=== PATIENT | female | born 1970 | race Caucasian/White ===

== ENCOUNTER 2018-10-07 14:45 | Inpatient (IN) ==
[2018-10-07] MEDS ORDERED: NS 1,000 ML IV PRN (15:05)
[2018-10-07 15:29] LABS: BASO# 0.03 X1000 (0.0-0.2); BASO% 0.4 % (0.0-0.8); EOS# 0.27 X1000 (0.0-0.7); EOS% 3.7 % (0.0-10.0); HEMATOCRIT 39.1 % (37.0-47.0); HEMOGLOBIN 13.3 g/dL (12.0-16.0); IMM GRAN# 0.01 X1000 (0.0-0.04); IMM GRAN% 0.1 % (0.0-0.5); LYMPH% 42.5 % (20.5-51.1); MCH 33.3 PG (27-31); MCV 97.8 FL (81-99); MONO# 0.57 X1000 (0.11-0.59); MONO% 7.8 % (1.7-9.3); MPV 9.1 FL (7.4-10.4); NEUT# 3.32 X1000 (1.4-6.5); NEUT% 45.5 % (42.2-75.2); PLT 334 X1000 (130-400); RDW 14.2 % (11.5-14.5)
--- NOTE | 2018-10-07 15:43 | Diag Imaging Result Doc PS360 ---
EXAM: CT HEAD W/O CONTRAST - 10/07/2018 HISTORY: CVA TECHNIQUE: CT head without contrast COMPARISON: None. FINDINGS: There is no evidence of intracranial hemorrhage, mass effect, midline shift, or hydrocephalus. There is no evidence of infarct, although acute infarcts may not be immediately visible. There is no evidence of skull fracture. Visualized portions of paranasal sinuses and mastoid air cells appear clear. IMPRESSION: No visible acute intracranial abnormality. No hemorrhage or mass effect. This exam was performed using automated exposure control, adjustment of mA or kV according to patient size, and/or use of iterative reconstruction technique. Electronically signed by Ranulfo Carrillo 10/07/2018 3:41 PM
--- NOTE | 2018-10-07 15:45 | Diag Imaging Result Doc PS360 ---
EXAM: CHEST-PORTABLE - 10/07/2018 HISTORY: SOB TECHNIQUE: Portable chest COMPARISON: 12/24/2016 FINDINGS: Heart size is normal. There are apparent COPD changes with mildly hyperexpanded lungs. There is apparent artifact from nipple shadow at the right base. There is no consolidation, vascular congestion, substantial pleural effusion, or pneumothorax identified. There is mild pleural thickening at the bilateral apices and lateral right base which appears stable. IMPRESSION: Apparent COPD changes with mildly hyperexpanded lungs. No other evidence of acute disease. Electronically signed by Ranulfo Carrillo 10/07/2018 3:43 PM
[2018-10-07 15:52] LABS: AGAP 10; ALBUMIN 4.1 g/dL (3.5-5.0); ALKALINE PHOSPHATASE 103 U/L (32-104); BUN 8 mg/dL (8-22); CALCIUM 9.1 mg/dL (8.8-10.2); CHLORIDE 100 mmol/L (98-107); COSMO 275; CREATININE 0.6 mg/dL (0.5-0.9); ESTIMATED GFR > 60; GLUCOSE 88 mg/dL (70-104); GOT 24 U/L (10-30); GPT 20 U/L (10-36); POTASSIUM 3.6 mmol/L (3.5-5.1); SODIUM 139 mmol/L (136-145); TCO2 29 mmol/L (25-35); TOTAL PROTEIN 6.5 g/dL (6.3-8.3)
[2018-10-07] MEDS ORDERED: ASPIRIN PO ONE (15:52)
[2018-10-07 15:54] LABS: INR 0.95; PROTIME 13.2 Seconds (11.0-16.0)
[2018-10-07 15:55] LABS: PTT 34.4 Seconds (22.3-41.8)
[2018-10-07] MEDS ORDERED: TORADOL IV ONE (16:08)
[2018-10-07] MEDS ORDERED: MORPHINE ONE (16:15)
[2018-10-07] MEDS ORDERED: MORPHINE IV ONE (16:17)
--- NOTE | 2018-10-07 16:18 | EKG Report ---
Test Performed on : 10/07/2018 3:39:05 PM Test Reason : CVA Blood Pressure : / mmHG Vent. Rate : 076 BPM Atrial Rate : 076 BPM P-R Int : 134 ms QRS Dur : 086 ms QT Int : 396 ms P-R-T Axes : 083 084 073 degrees QTc Int : 445 ms Normal sinus rhythm. Possible Left atrial enlargement Low voltage QRS Borderline ECG No previous ECGs available Unconfirmed Result
--- NOTE | 2018-10-07 16:21 | PROVIDER DOCUMENTATION ---
This chart was entered by Ava Meng Scribe, acting as scribe for Walter Bansal MD. HPI-Neurological Disorder - General Chief Complaint: General Adult Stated Complaint: FACE NUMB Time Seen by Provider: 10/07/18 14:55 Source: patient, family () Allergies/Adverse Reactions: Patient Allergies Allergy/AdvReac Type Severity Reaction Status Date / Time Sulfa (Sulfonamide Allergy Unknown Unknown Verified 04/13/14 18:32 Antibiotics) acetaminophen AdvReac Unknown Verified 10/07/18 15:05 NSAIDS (Non-Steroidal AdvReac Unknown Verified 10/07/18 15:05 Anti-Inflamma phenazopyridine AdvReac Unknown Verified 10/07/18 15:05 [From Pyridium] Home Medications: Home Medication List Medication Instructions Recorded Confirmed Last Taken Type Alprazolam [Xanax] 0.25 mg PO TID 04/13/14 04/13/14 04/13/14 History Cyclobenzaprine [Flexeril] 10 mg PO TID PRN #10 tablet 04/13/14 Unknown Rx Hydrocodone/APAP 5 mg/325 mg 1 each PO Q6H PRN PRN #12 tablet 04/13/14 Unknown Rx [Ferdinand-5] Ibuprofen [Motrin] 600 mg PO Q8-12H PRN PRN #12 tablet 04/13/14 Unknown Rx Venlafaxine [Effexor] 75 mg PO TID 04/13/14 04/13/14 04/13/14 History - History of Present Illness-Neuro Nature of Presenting Problem: 48 yowf presents to the ed via pov with at bedside. pt sts that she called him 1 week prior with same sx and he advised to go to the hospital but pt did not. pt sts came back home yesterday via a plane and when met her she was brought off the plane in a wheelchair due to weakness of left side. pt went home and today noticed facial numbness. pt is chronic pain pt and takes "Xanax for tremors" pt ambulated to room 9 with holding her arm for support. once in the room and pt was lying in the bed pt could not lift her LUE or LLE. pt has mild slurring of speech and facial droop on left side. pt sts numbness and tingling noted to whole left side of body and c/o CEE Headache Location: reports: frontal Severity: reports: severe Onset/Duration: reports: 1 week ago (per ) Timing: reports: still present, getting worse Context: reports: impaired speech, paresthesia, facial droop Any recent trauma/injury?: reports: none Character of Deficits: reports: altered sensation, impaired speech, decreased ability to walk New weakness or altered sensation location:: reports: LUE, LLE, left facial Cognitive Baseline: alert, oriented x3 Gait Baseline: uses a cane Associated Symptoms: reports: headache, decreased ability to walk or stand, numbness in legs/feet (left side only), paresthesia (left side of body), slurred speech, tingling in legs/feet (left side only), weakness. denies: nausea, vomiting Similar Symptoms Previously?: No Recently seen or treated by another doctor?: No Review of Systems - Adult - REVIEW OF SYSTEMS - ADULT ROS:: ROS per family (per and pt) Constitutional: reports: no symptoms reported Eyes: reports: no symptoms reported Ears, Nose, Mouth & Throat: reports: no symptoms reported Cardiovascular: denies: chest pain, palpitations, syncope Respiratory: denies: cough, shortness of breath, wheezing Gastrointestinal: denies: diarrhea, nausea, vomiting Genitourinary: reports: no symptoms reported Musculoskeletal: reports: see HPI, muscle weakness (LUE/LLE). denies: back pain, neck pain Integumentary: reports: no symptoms reported Neurological: reports: see HPI, headache/migraines, loss of balance, numbness, paresthesia, slurred speech, tremors Psychiatric: reports: see HPI, anxiety Endocrine: reports: no symptoms reported Hematologic/Lymphatic: reports: no symptoms reported Allergic/Immunologic: reports: no symptoms reported All Other Systems: Reviewed and Negative Past History - Adult - PAST MEDICAL HISTORY-ADULT Review of Records: reports: Old Records Reviewed, Nursing Assessment Review, Medications Reviewed, Social history reviewed & non-contributory. Major Childhood Illnesses: reports: denies history Cardiovascular: reports: denies history Respiratory: reports: denies history Gastrointestinal: reports: denies history Obstetrical/Gynecological: reports: denies history Genitourinary: reports: denies history Musculoskeletal: reports: chronic pain, intervertebral disc disease, other (c- spine sx) Hand Dominance: Right Handed Neurological: reports: denies history Psychiatric: reports: anxiety, depression Endocrine/Immune: reports: Diabetes Other Conditions: reports: denies history - PRIOR SURGERIES/PROCEDURES Surgical/Procedure History: reports: appendectomy, hysterectomy, back/neck - IMMUNIZATION STATUS Childhood Immunizations: See Nurse Assessment Flu Vaccine: See Nurse Assessment - FAMILY HISTORY Family History: reviewed, not pertinent - SOCIAL HISTORY Smoking: cigarettes, greater than 1 pack/day Provider spent 3-5 mins advising pt. on dangers of tobacco.: Discussed manners to quit use, and f/u contacts for add'l counseling. Substance Use: marijuana Living Situation: family Physical Exam- Neurological - Physical Exam-Neuro Initial Vital Signs Reviewed: Yes General Appearance: alert, mild distress, thin Eye Exam: bilateral eye: PERRL HENMT: moist mucous membranes Head Injury: no evidence of injury Neck: non-tender, full range of motion, normal inspection Respiratory: chest non-tender, lungs clear, normal breath sounds Cardiovascular: normal peripheral pulses, regular rate, rhythm Abdominal Exam: normal bowel sounds, non tender, soft Lymphatic: no adenopathy Extremity: normal inspection, normal capillary refill, pelvis stable, other (LUE and LLE has no strength on exam). 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 II-XII, abnormal gait, facial droop, motor weakness Integumentary: normal color, normal turgor, warm/dry Psych/Mental Status: oriented x 3, tearful - Glascow Coma Scale Best Eye Response: (4) open spontaneously Best Verbal Response: (5) oriented Best Motor Response: (6) obeys commands Total Glascow Score: 15 Progress - PLAN OF CARE/RESULTS Progress/Plan/Lab Results: Vital Signs - 8 hr 10/07/18 14:50 Temperature 98 F Pulse Rate 74 Respiratory Rate 18 Blood Pressure 138/94 O2 Sat by Pulse Oximetry 99 Laboratory Results - last 24 hr 10/07/18 10/07/18 10/07/18 15:20 15:20 15:20 WBC 7.30 RBC 4.00 L Hgb 13.3 Hct 39.1 MCV 97.8 MCH 33.3 H MCHC 34.0 RDW Std Deviation 14.2 Plt Count 334 MPV 9.1 Immature Gran % (Auto) 0.1 Neut % (Auto) 45.5 Lymph % (Auto) 42.5 [place] % (Auto) 7.8 Eos % (Auto) 3.7 Baso % (Auto) 0.4 Immature Gran # (Auto) 0.01 Neut # (Auto) 3.32 Lymph # (Auto) 3.10 [place] # (Auto) 0.57 Eos # (Auto) 0.27 Baso # (Auto) 0.03 PT INR PTT (Actin FS) Sodium 139 Potassium 3.6 Chloride 100 Carbon Dioxide 29 Anion Gap 10 BUN 8 Creatinine 0.6 Estimated GFR/1.73 m2 > 60 BUN/Creatinine Ratio 13 Glucose 88 Calculated Osmolality 275 Calcium 9.1 Total Bilirubin 0.30 AST 24 ALT 20 Alkaline Phosphatase 103 Troponin T < 0.010 Total Protein 6.5 Albumin 4.1 Globulin 2.0 Albumin/Globulin Ratio 2.0 10/07/18 15:20 WBC RBC Hgb Hct MCV MCH MCHC RDW Std Deviation Plt Count MPV Immature Gran % (Auto) Neut % (Auto) Lymph % (Auto) [place] % (Auto) Eos % (Auto) Baso % (Auto) Immature Gran # (Auto) Neut # (Auto) Lymph # (Auto) [place] # (Auto) Eos # (Auto) Baso # (Auto) PT 13.2 INR 0.95 PTT (Actin FS) 34.4 Sodium Potassium Chloride Carbon Dioxide Anion Gap BUN Creatinine Estimated GFR/1.73 m2 BUN/Creatinine Ratio Glucose Calculated Osmolality Calcium Total Bilirubin AST ALT Alkaline Phosphatase Troponin T Total Protein Albumin Globulin Albumin/Globulin Ratio Orders Category Date Time Status Cardiac Monitoring DIRECTED Care 10/07/18 15:05 Active Finger Stick Blood Sugar (ED) DIRECTED Care 10/07/18 15:05 Active Misc. NRSG Communication Order DIRECTED Care 10/07/18 15:05 Active Saline Loc NOW Care 10/07/18 15:05 Active CHEST-PORTABLE [RAD] Stat Exams 10/07/18 15:[address] HEAD W/O CONTRAST [CT] Stat Exams 10/07/18 15:05 Completed CBC WITH ELECTRONIC DIFF [HEME] Stat Lab 10/07/18 15:20 Completed COMPREHENSIVE METABOLIC PANEL [CHEM] Stat Lab 10/07/18 15:20 Completed PROTIME WITH INR [COAG] Stat Lab 10/07/18 15:20 Completed PTT [COAG] Stat Lab 10/07/18 15:20 Completed TROPONIN T Stat Lab 10/07/18 15:[address] W/POSS RFLX CULT [URINALYSIS] Stat Lab 10/07/18 15:05 Uncollected URINE DRUG SCREEN PL Stat Lab 10/07/18 15:05 Uncollected 0.9% Sodium Chloride Inj [Ns] 1,000 ml Med 10/07/18 15:05 Active IV 150 mls/hr Aspirin Med 10/07/18 15:52 Discontinued 325 mg PO NOW ONE Ketorolac [Toradol] Med 10/07/18 16:08 Discontinued 30 mg IV NOW ONE Morphine Med 10/07/18 16:17 Discontinued 3 mg IV NOW ONE EKG [EKG] Stat Ther 10/07/18 15:05 Draft pt is out of TPA window due to onset 1 week prior and sx have been intermittent for 1 week Result Diagrams: 10/07/18 15:20 10/07/18 15:20 - REASSESSMENT Reassessment #1 Time Reassessed: 16:10 Status: unchanged Reassessment Comment: dr bansal at bedside. not tpa candidate symptom onset >4.5 hrs - EKG 1 Time of EKG reading by physician:: 15:39 EKG Read and Signed by:: Walter Bansal EKG Interpretation (*Must complete 3 of following elements*): Normal (liam rderline) Rate: 76 Rhythm: nsr [place]: normal QRS: other (possible left atrial enlargement/low voltage qrs) [place] Interval: normal ST Wave: normal - CONSULTS/PCP/HOSPITALIST Notification #1 *Consult/PCP/Hospitalist*: hospitalist dr chirinos Time Discussed: 16:18 (venus in er and saw pt at bedside) Reason/Comments: cva Consult Disposition: Will see in ED, Admit Departure - Departure Date of Disposition Decision: 10/07/18 Time of Disposition Decision: 16:11 DIAGNOSIS: Tobacco use disorder CVA (cerebral vascular accident) Qualifiers: CVA mechanism: unspecified Qualified Code(s): I63.9 - Cerebral infarction, unspecified Disposition: ADMITTED INPATIENT 09 Certified Medical Emergency: Emergent Condition: Stable Referrals and Follow-Ups: Walter Briceno MD [Primary Care Provider] - - Critical Care Note This patient required my direct & personal management of CC.: Yes Total Time (mins): 39 Critical Care Statement: This patient required my direct personal management to treat or rule out processes, the absence of which, could potentiallly result in sudden, clinically significant life or limb threatening deterioration. Attestation - Physician/ MIRTHA Attestation Patient care was provided by Advanced Practice Provider:: No The physician spent face to face time with patient:: Yes Advanced Practice Provider documentation review:: Supervising physician onsite and consulted in the evaluation and care of this patient. The physician did have a face to face encounter with the patient. - NIH Stroke Scale NIH Type: Initial Evaluation Level of Consciousness: 0-Alert LOC Questions (ask month and age): 0-Answers Both Correctly LOC Commands (ask to open & close eyes;make a fist, let go): 0-Obeys Both Correctly Best Gaze (horizontal eye movement): 0-Normal Visual (use finger movement, counting or visual threat): 0-No Visual Loss Facial Palsy (show teeth or raise eyebrows & close eyes tght: 2-Partial Paralysis Motor Function-left arm: 2-Some Effort Against [place] Motor Function-right arm: 0-Normal Motor Function-left le-Some Effort Against [place] Motor Function-right le-Normal Limb Ataxia(yuceam-ocpa-nwxcyb, or heel to goldman): 0-No Ataxia Sensory(pin prick to face,arms,trunk,legs-compare side/side): 1-Mild to Moderate Decrease in Sensation Best Language(name item/read sentence.Ex-Down to Earth): 0-No Aphasia Dysarthria(Pt read words or say words Ex.Mama,Tip-Top,Thanks: 0-Normal Art iculation Extinction and Inattention: 0-Normal NIH Total Score: 7 This chart was documented by the indicated scribe, (Ava Meng Scribe) and accurately reflects the services I performed and decisions made by me, Walter Bansal MD, as attested by the provider's signature.
[2018-10-07 18:36] LABS: BILIRUBIN URINE NEGATIVE (NEGATIVE); BLOOD URINE NEGATIVE (NEGATIVE); GLUCOSE URINE NEGATIVE (NEGATIVE); KETONE URINE TRACE mg/dL (NEGATIVE); NITRITE URINE NEGATIVE (NEGATIVE); PROTEIN URINE NEGATIVE (NEGATIVE); UROBILINOGEN URINE NORMAL
[2018-10-07 18:37] LABS: CLARITY CLEAR (CLEAR); COLOR YELLOW; LEUKOCYTES URINE NEGATIVE (NEGATIVE)
[2018-10-07 18:43] LABS: URINE BACTERIA NEGATIVE /HFP; URINE CAST NONE SEEN /LPF; URINE CRYSTAL NONE SEEN /HPF; URINE EPITHELIAL CELLS <10 /HPF (<10); URINE RBC <10 /HPF (<10); URINE SOURCE CATH; URINE WBC <10 /HPF (<10); URINE YEAST NONE SEEN /HPF
[2018-10-07 18:46] LABS: UR OPIATES QUAL PRESUMPTIVE POSITIVE (NONE DETECT)
[2018-10-07 18:47] LABS: UR AMPHETAMINES QUAL NONE DETECTED (NONE DETECT); UR BARBITUATES QUAL NONE DETECTED (NONE DETECT); UR BENZODIAZEPIN QUAL PRESUMPTIVE POSITIVE (NONE DETECT); UR CANNABINOIDS QUAL NONE DETECTED (NONE DETECT); UR COCAINE QUAL NONE DETECTED (NONE DETECT); UR METHADONE QUAL NONE DETECTED (NONE DETECT); UR METHAMPHETAMINE QUAL NONE DETECTED (NONE DETECT); UR OXYCODONE QUAL NONE DETECTED (NONE DETECT); UR PCP QUAL NONE DETECTED (NONE DETECT); UR PROPOXYPHENE QUAL NONE DETECTED (NONE DETECT); UR TCA QUAL NONE DETECTED (NONE DETECT)
--- NOTE | 2018-10-07 20:43 | HISTORY AND PHYSICAL ---
ADDENDUM: Patient seen and examined by myself. Full note dictated and discussed with nurse practitioner. Patient has a long history of smoking. Notes that until recently she was smoking a pack and half a day. She has decreased to 4 or 5 cigarettes a day. Her history is very difficult to follow as it appears though her neurologic weakness has been increasing and decreasing over the past several days to weeks to possibly a month. She apparently had similar symptoms a week ago but did not go to the hospital or to her primary care to be checked out. She was on vacation and notes that symptoms started with facial weakness and then shoulder weakness. It does not appear as though all the symptoms started at the same time, which certainly would be somewhat unusual for a stroke. Regardless, we will admit her to the hospital, place her on telemetry, IV fluids, oxygen, check her cholesterol, carotid echo, MRI and we will follow. cc: Ortiz Haas MD
--- NOTE | 2018-10-07 20:46 | HISTORY AND PHYSICAL ---
PRIMARY CARE PROVIDER: Dr. Walter Briceno. CHIEF COMPLAINT: Complete left-sided numbness and tingling. HISTORY OF PRESENT ILLNESS: Ms. 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 Last week, it happened again while she was on vacation in [place] and it was more to the left upper extremity, and then she started having numbness and tingling, as well as some pain. She states yesterday, she got on a plane and it continued to exacerbate all the way down the left side of her body, so much so that she was unable to walk. They had to wheel her out in a wheelchair. She woke up this morning, she had lost complete sensation in her fingertips and the bottom of her feet. She stuck her left foot with a pin and did not have any sensation. However, she states now she feels like some of the sensation is coming back. 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 She is unable to move her lower extremity at all unless she picks it up herself. When she pushes with her bilateral lower extremities, she has 5/5 on the right, about 1/5 on the left, intermittent sensation going up her left side of her body. Workup in the ED, laboratory data was essentially unremarkable. Her head CT scan was normal. We will put her in and rule her out for CVA. If her MRI does not show anything acute, we may have to get Neurology involved. She does have an appointment with a neurologist sometime in the near future to try to rule in or rule her out for Parkinson's. PAST MEDICAL HISTORY: 1. Recent left ear infection, on amoxicillin. 2. COPD, emphysema. 3. Tremors, on Xanax. 4. Scoliosis, walks with a cane. 5. 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 6. Lupus. 7. Crohn's disease with scarring. PAST SURGICAL HISTORY: 1. Five kidney stone removals. 2. Two sections. 3. Tubal ligation. 4. Complete hysterectomy. 5. Neck surgery. 6. Cholecystectomy. 7. Appendectomy. FAMILY HISTORY: Dad had a pituitary cancer, a rare bone cancer from [place], was born with 1 kidney, diabetes, alcoholism. Mother with cardiomyopathy. Her son was born with hypertrophic cardiomyopathy. SOCIAL HISTORY: She is , 6 children. She was a 1-1/2 pack per day smoker since the age of 13. No alcohol. Occasional marijuana. No illicit drug use. She has recently cut back, has had a total of 5 cigarettes over the course of a month. REVIEW OF SYSTEMS: A 12-point review of systems completed and negative, except for those mentioned in the HPI. No headache. No fever. No chills. No chest pain. No nausea. No vomiting. No diarrhea. No dysuria. PHYSICAL EXAMINATION: VITAL SIGNS: Temperature is 98.4 degrees, heart rate 74, respirations 18, blood pressure 138/94, O2 is 99% on room air. GENERAL: Ms. Gaxiola is a pleasant, 48-year-old, female, who is lying on the bed in no acute distress, somewhat anxious. HEENT: Atraumatic, normocephalic. PERRL. NECK: Supple. Trachea midline. CARDIOVASCULAR: S1, S2 appreciated. No murmurs, gallops, rubs noted. RESPIRATORY: Lung sounds clear bilaterally. GASTROINTESTINAL: Soft, nontender, nondistended. Positive bowel sounds x4 quadrants. EXTREMITIES: Lower extremities are negative for edema. No signs of clubbing or cyanosis. NEUROLOGIC: The patient is awake, alert, and oriented. Follows commands. Moves all extremities. On shoulder shrug, she is weaker on the left than the right. Her smile is symmetrical. Her tongue is midline. Upper extremity weakness, right 5/5, left 3/5. Positive for pronator drift. However, her left arm was extremely shaky. Left, she could not lift her left leg off the bed without assisting it herself. Her push on the right was 5/5, left 1/5. She complained of numbness and tingling all over the left side of her body that continues to wax and wane. She does feel like she is regaining feeling back in her fingertips. However, now she is complaining of some right-sided neck pain. DIAGNOSTIC DATA: Head CT did not show anything acute. Chest x-ray showed COPD changes. LABORATORY DATA: White count 7, hemoglobin and hematocrit 13 and 39, platelet count 334,000. Sodium 139, potassium 3.6, BUN 8, creatinine 0.6, blood glucose is 88. Troponin was less than 0.010. ASSESSMENT AND PLAN: 1. Cerebrovascular accident rule out. Her head CT was negative. We will continue with a brain MRI/MRA in the morning, as well as echocardiogram and carotid Doppler's. Currently, pending urine drug screen as well as urinalysis. We will continue with full-dose aspirin, IV fluids, neurologic checks. Consult Physical Therapy, Cook'S Assistant. 2. Known scoliosis. Patient walks with a cane. 3. Lupus. 4. Crohn's disease. 5. Recent left ear infection, on amoxicillin. We will continue this when they have been verified. 6. Chronic obstructive pulmonary disease, emphysema, without exacerbation. We will continue her on Spiriva. 7. Tremors. Patient takes Xanax at home. 8. Further recommendations to follow physician evaluation, laboratory and diagnostic data. If diagnostic data does not rule her in for CVA, we will have to get Neurology involved after the testing. Dictated by JENA Briggs for Ortiz Haas MD cc: MD Walter Jones MD
[2018-10-08] MEDS: LIPITOR PO SCH ×2 (04:31→20:48)
[2018-10-08 05:52] LABS: HEMATOCRIT 34.5 % (37.0-47.0); HEMOGLOBIN 11.4 g/dL (12.0-16.0); MCH 32.9 PG (27-31); MCV 99.4 FL (81-99); MPV 9.6 FL (7.4-10.4); RBC 3.47 XMIL (4.2-5.4); RDW 14.2 % (11.5-14.5); WBC 7.53 X1000 (4.8-10.8)
[2018-10-08 06:35] LABS: AGAP 9; BUN 10 mg/dL (8-22); CALCIUM 8.3 mg/dL (8.8-10.2); CHLORIDE 110 mmol/L (98-107); COSMO 285; CREATININE 0.5 mg/dL (0.5-0.9); ESTIMATED GFR > 60; GLUCOSE 74 mg/dL (70-104); POTASSIUM 3.7 mmol/L (3.5-5.1); SODIUM 144 mmol/L (136-145); TCO2 25 mmol/L (25-35)
[2018-10-08] MEDS ORDERED: VENTOLIN HFA INH PRN (07:41)
--- NOTE | 2018-10-08 08:20 | Extremity Venous Study ---
EXAM: Carotid Ultrasound HISTORY: ?CVA TECHNIQUE: Grayscale, duplex, and color Doppler evaluation was performed of the carotid arteries bilaterally. COMPARISON: None. FINDINGS: There is mild bilateral calcific atherosclerotic plaque. There are no velocity elevations to suggest hemodynamically significant carotid artery stenosis. ICA/CCA ratios are within normal limits. Bilateral vertebral arterial flow is antegrade. IMPRESSION: No evidence for hemodynamically significant carotid artery stenosis. Estimated stenosis is less than 50% bilaterally. Electronically signed by Nakia Moore 10/08/2018 8:18 AM
[2018-10-08] MEDS: XANAX PO SCH ×3 (08:47→17:15)
[2018-10-08] MEDS: ASPIRIN PO SCH (08:47)
[2018-10-08] MEDS ORDERED: NS 1,000 ML IV PRN (09:09)
[2018-10-08] MEDS: SPIRIVA INH SCH (10:11)
--- NOTE | 2018-10-08 13:47 | ECHO REPORT ---
ORDER DATE: 10/07/2018 INTERPRETING PHYSICIAN: Dr. Azeem Smith ECHOCARDIOGRAPHIC MEASUREMENTS: 1. Interventricular septum: 0.7 cm. 2. Posterior wall: 0.7 cm. 3. Diastolic diameter: 4.1 cm. 4. Left atrium: 2.7 cm. 5. Aortic root: 2.8 cm. SUMMARY OF THE 2-DIMENSIONAL IMAGIN. Aortic valve leaflets are trileaflet. 2. Pulmonic valve was normal. 3. Tricuspid valve was normal. 4. Mitral valve was normal. 5. Normal left ventricular cavity size. Estimated ejection fraction of 65 to 70 percent. 6. There is mild mitral regurgitation. 7. Peak velocity across the aortic valve less than 2 m/sec. There is no aortic stenosis or regurgitation. 8. There is mild tricuspid regurgitation. Peak velocity across the tricuspid valve was 2.5 m/sec. 9. Pulmonary artery systolic pressure of 35 mmHg. 10. There is no pericardial effusion or obvious intracardiac mass or thrombus seen. 11. Saline contrast study was done which was negative for patent foramen ovale. cc: Azeem Smith MD
--- NOTE | 2018-10-08 14:55 | Diag Imaging Result Doc PS360 ---
EXAM: MRA BRAIN W/O CONTRAST HISTORY: R/O CVA TECHNIQUE: 3-D [id number] images of the [place]. COMPARISON: None. FINDINGS: Basilar artery, posterior cerebral arteries, distal internal carotid arteries, middle cerebral arteries, and anterior cerebral arteries are patent. No stenosis or occlusion. No aneurysm. IMPRESSION: Normal MRI of the [place]. Electronically signed by Nakia Moore 10/08/2018 2:52 PM
--- NOTE | 2018-10-08 14:58 | Diag Imaging Result Doc PS360 ---
EXAM: MRI BRAIN W/O CONTRAST HISTORY: R/O CVA TECHNIQUE: Multisequence, multiplanar images of the brain were obtained without contrast as per standard protocol. COMPARISON: None. FINDINGS: There are no extra-axial collections. Diffusion images show no evidence for acute infarct. There is no evidence for hemorrhage. There is no hydrocephalus. No midline shift or mass effect. There is no abnormal signal within the brainstem, cerebellum, or cerebral hemispheres. There is mild sphenoid mucosal disease. IMPRESSION: Sphenoid sinus disease. Otherwise normal noncontrasted MRI of the brain. Electronically signed by Nakia Moore 10/08/2018 2:56 PM
--- NOTE | 2018-10-08 17:18 | PROGRESS NOTE ---
DATE: 10/08/2018 SUBJECTIVE: The patient notes that she is feeling a lot better today. She is noted to be moving her left arm without any difficulty, although when asked, she notes she still has weakness in her left shoulder. Does still appear to have some weakness of her left leg, but still much improved. PHYSICAL EXAMINATION: Vital Signs: Temperature 97.6, Pulse 59, respiratory 18, BP 96/57. General: Patient is awake, alert, currently in no distress. HEENT: Normocephalic. Neck: Supple. Cardiovascular: Regular rate. Chest: Clear. Abdomen: Soft. Extremities: Moves all extremities. Neurologic: No focal changes. Still has left lower extremity weakness. Could not appreciate any left upper extremity weakness. ASSESSMENT: 1. Acute neurologic event. I certainly suspect this could have been a stroke, but unusual given the way that her symptoms started slowly and progressed. Regardless, they are improving. We will continue physical therapy. MRI and MRA are currently pending. 2. Crohn's. 3. Lupus. 4. Chronic obstructive pulmonary disease. PLAN: We will continue patient in the hospital, continue physical therapy, and continue to follow. cc: Ortiz Haas MD
[2018-10-09] MEDS: SPIRIVA INH SCH (07:53)
[2018-10-09] MEDS: ASPIRIN PO SCH (09:21)
[2018-10-09] MEDS: XANAX PO SCH ×3 (09:21→21:36)
--- NOTE | 2018-10-09 17:35 | PROGRESS NOTE ---
DATE: 10/09/2018 SUBJECTIVE: Patient notes that her left upper extremity weakness appears to have resolved. She is still having some left lower extremity weakness. She is having some pain in her left shoulder. Denies any fevers or chills. Denies any headaches, blurred vision or focalized weakness or numbness on her right side. PHYSICAL: Temperature 97.6, pulse 59, respiratory 18, BP 96/57.General: Patient is awake, alert, she is in no distress. She is noted to have full motion of her left upper extremity. She has good mobility on her left but does seem to be a little weak. HEENT: Normocephalic. Neck: Supple. Cardiovascular: Regular rate. Chest: Clear. Abdomen: Soft. Skin: Warm, dry, no rashes. ASSESSMENT: 1. Left-sided weakness. CT, MRI and MRA all are negative. Carotid is still pending. 2. Known scoliosis. 3. Lupus. 4. Crohn disease. 5. Chronic obstructive pulmonary disease. 6. Chronic anxiety. PLAN: Continue patient in the hospital, continue physical therapy. cc: Ortiz Haas MD
[2018-10-09] MEDS: LIPITOR PO SCH (21:36)
[2018-10-10] MEDS: XANAX PO SCH ×3 (07:08→22:02)
[2018-10-10] MEDS: SPIRIVA INH SCH (08:45)
--- NOTE | 2018-10-10 10:19 | PROGRESS NOTE ---
DATE: 10/10/2018 SUBJECTIVE: The patient notes that her left upper extremity movement is better, although she is still having some left shoulder pain and neck pain. Notes that she has a previous history of neck issues. Today, she does remark that her symptoms have been going on for several weeks or months, and she has just not told anyone. They have gradually worsened. OBJECTIVE: Vital Signs: Temp 97.3, pulse 53, respiratory rate 18, BP 96/53 to 88/57. General: The patient is awake, alert. She is in no current respiratory distress. HEENT: Normocephalic. Neck: Supple. Cardiovascular: Regular rate. Chest: Clear. Abdomen: Soft. Extremities: Moves all extremities, although she still has weakness noted in her left lower extremity. ASSESSMENT: 1. Acute neurologic change with weakness in left lower and minimal weakness in left upper extremity. 2. Hypotension. The patient appears to be tolerating. 3. Known cervical disk disease. 4. Lupus. 5. Crohn's disease. PLAN: Will continue the patient in the hospital. Will attempt to get an MRI on her L-spine. Will ask Neurology to evaluate. Will continue physical therapy. Further orders as needed. cc: Ortiz Haas MD
[2018-10-10] MEDS: ASPIRIN PO SCH (10:53)
[2018-10-10] MEDS: LIPITOR PO SCH (22:02)
[2018-10-11] MEDS: XANAX PO SCH ×3 (06:18→22:05)
[2018-10-11] MEDS: ASPIRIN PO SCH (08:04)
[2018-10-11] MEDS: SPIRIVA INH SCH (08:45)
--- NOTE | 2018-10-11 09:01 | Diag Imaging Result Doc PS360 ---
EXAM: MRI LUMBAR SPINE W/O CONTRAST HISTORY: lower ext weakness left. TECHNIQUE: Multiplanar, multisequence images were obtained of the lumbar spine without contrast as per standard protocol. COMPARISON: None. FINDINGS: Bone marrow signal intensity is within normal limits. The conus medullaris appears normal. Abdominal aorta is of normal caliber. L1/L2: Unremarkable. L2/L3: Unremarkable. L3/L4: Unremarkable. L4/L5: Minimal disc osteophyte complex. Mild posterior hypertrophy. L5/S1: Minimal diffuse disc osteophyte complex. IMPRESSION: No spinal or foraminal stenosis. No focal disc herniation. Electronically signed by Nakia Moore 10/11/2018 8:59 AM
[2018-10-11] MEDS: ZOFRAN IV PRN (18:05)
--- NOTE | 2018-10-11 18:54 | PROGRESS NOTE ---
DATE: 10/11/2018 SUBJECTIVE: The patient this morning has somewhat new complaints. Initially, she is talking with an extremely soft voice to the point that I can barely hear her. She now notes that she is having change in her vision. In fact, states that her vision is difficult to see. She is no longer able to move her left leg, although she was able to walk to the door and back with therapy yesterday. Complains of left shoulder pain. She notes that most of her symptoms have been going on for several months; she has just not told anyone. PHYSICAL EXAMINATION: Vital Signs: Temperature 97.3 degrees, pulse 53, BP 96/53. General: Patient is awake, alert. She is in no respiratory distress. Her speech is extremely soft, but she is oriented. HEENT: Normocephalic. Neck: Supple. Cardiovascular: Regular rate. Chest: Clear, nonlabored. Abdomen: Soft, nondistended. Extremities: Unable to elicit any weakness in the left upper compared to right upper extremity. Left lower extremity is 3/5 compared to the right, although effort seems to be playing a large role. ASSESSMENT: 1. Weakness in the left lower extremity. Patient does have some complaints of back pain and notes that this has been going on for a while. Therefore, we are going to check an MRI to rule out any pathology. 2. Known scoliosis. 3. Chronic obstructive pulmonary disease without exacerbation. PLAN: If the MRI is negative, we are going to transfer her to [facility] for neurology assistance and hopefully further delineation of her diagnosis. cc: Ortiz Haas MD
[2018-10-11] MEDS: LIPITOR PO SCH (22:05)
[2018-10-12] MEDS: MORPHINE IV PRN ×2 (04:26→11:25)
[2018-10-12] MEDS: ZOFRAN IV PRN ×2 (05:41→11:25)
[2018-10-12] MEDS: XANAX PO SCH ×3 (06:11→21:07)
[2018-10-12] MEDS: ASPIRIN PO SCH (09:02)
[2018-10-12] MEDS: SPIRIVA INH SCH (09:08)
--- NOTE | 2018-10-12 10:18 | CONSULTATION ---
DATE OF CONSULTATION: 10/12/2018 Ms. Gaxiola is 48 years old and she reports episodic numbness in the left limbs beginning 6 months ago. She reports initial tingling confined to the left side of her neck, shoulder, axilla. Episodes were initially 15 or 20 minutes and would occur once or twice daily. The territory involved gradually expanded and continued confined to the left, involving her breast, trunk, arm, hand. Beginning about 3 months ago, symptoms would extend across the left side of her body to the leg. She reports noticing a little bit of weakness in the left limbs when symptoms were present. She fell once several months ago. She believes that vision would sometimes be blurred on the left during these episodes. There were some changes in her speech. Symptoms were more often noticed when she was up and active than when resting. As the territory involved became greater, the duration of symptoms increased to an hour or two but frequency decreased to every other day or so. Six days ago, she noticed tingling over the left side of her face for the first time. Speech was affected. She presented to the emergency room and believes left facial drooping was reported. She had some headaches with other spells and headache was more prominent then. She reports with the episode 6 days ago that she could not raise her left limbs and this was greater degree of weakness than with any prior episode. Her entire left body felt numb. There was never incontinence. She never had right-sided symptoms. Episodes were never associated with altered awareness. There is history of cervical surgery with megha placement for management of degenerative problems about 10 years ago. She has not had recent head or neck injury. She has never had diagnosed stroke or other neurologic event. Workup here includes lumbosacral MRI, brain MRI, brain MRA, noncontrast CT of the head. All reported unremarkable. Echocardiogram showed no source of embolus. Carotid ultrasound showed less than 50% stenosis bilaterally. Lab showed unremarkable chemistry. She has anemia. Urine drug screen was positive for opiates and for benzodiazepines, consistent with her home medication list including hydrocodone/acetaminophen, alprazolam, cyclobenzaprine, ibuprofen, venlafaxine. Past history is remarkable for reported lupus, Crohn's disease, COPD. She continues to smoke cigarettes. She has been afebrile here. Systolic blood pressure was initially 130s, later 80s-120s. Heart rate has ranged 50s to 80s. On exam now, Ms. Gaxiola is awake, alert, attentive, appropriate, oriented. Speech is not dysarthric. Language function is intact. Memory is good. Head is unremarkable. I did not examine her neck vigorously. There is no paraspinal muscle spasm. Shoulder shrug is good bilaterally. Visual forman are full tested by confrontational finger counting. Extraocular movements are full. Facial motility appears symmetric. She reports diminished pinprick appreciation over the left face compared to the right. Gag is intact. Tongue is midline. She can hear. Strength is normal in the right limbs. On the left, there is inconsistent power generated. With distraction and repeated testing, she demonstrated good power in the left limbs. With individual motor testing on the left, findings were very inconsistent. Limb tone is symmetric. She did well on [id number] testing bilaterally. She did rapid alternating movements better with the right hand than the left. She has 2+ reflexes at the knees, ankles, wrists symmetrically. Plantar response is silent bilaterally. Proprioception is good at the great toe MTP joint bilaterally. She reports diminished pinprick and light touch appreciation over the left limbs compared to the right. She reports diminished pinprick appreciation over the left scalp compared to the right. I did not test her gait. IMPRESSION: Subjective left-sided weakness and numbness. I do not find a definite objective neurologic deficit. Negative imaging is reassuring. Her report that episodes typically begin in the neck and then progress across the left side of her body is consistent with a sensory seizure march, and I will order EEG. I suspect this is not a seizure. I encouraged her to take her medicines correctly and to be careful with gait and activities. If EEG is negative, I will not have any other specific suggestion. If nothing else is apparent, we might label this migraine since she is a young woman with history of headache. Eventually, she might be a candidate for migraine prophylaxis. Of course, she should quit smoking cigarettes. Thanks for asking neurology to see Ms. Gaxiola. cc: MD FIONA Onofre III
--- NOTE | 2018-10-12 14:33 | PROGRESS NOTE ---
DATE: 10/12/2018 SUBJECTIVE: Patient reports feeling fine. She continues to complain of episodic numbness in the left limb. Denies any headaches at this time but she reports that she has periodic episodes of headaches. OBJECTIVE: Vital Signs: Temperature 97.4 degrees, heart rate 53, respiratory rate 18, blood pressure 98/64, O2 saturation 100% on room air. General Examination: This is a 48-year-old female lying in bed, in no acute distress. Cardiovascular: S1, S2 heard. No murmurs, gallops, or rubs. Regular rate and rhythm. Respiratory: Clear bilaterally to auscultation. No work of breathing or using accessory muscles. Abdomen: Soft. Nontender to palpation. Bowel sounds present. No organomegaly. Extremities: No clubbing, cyanosis, or edema. Peripheral pulses present in both legs. Neurological: Patient moves 4 extremities. Cranial nerves grossly normal. LABORATORY DATA: Reviewed. ASSESSMENT AND PLAN: 1. Left-sided weakness and numbness. Patient has been evaluated by Dr. Shah. Please see his note for more details about it. He did not find any definite objective neurological deficit. If there is any suspicion for any seizure activity, patient is going to have an EEG. The suspicion for that condition is also low. From his standpoint, if the EEG is negative, there are no new recommendations from his standpoint and the patient, I think, can be also discharged from a medical standpoint. She may need to have prophylactic therapy for migraines. This is something that can be discussed, I think, in the office. At this point, we will continue to monitor this patient closely. 2. Chronic obstructive pulmonary disease without any exacerbation. We will provide breathing treatments if needed. 3. Disposition. We will continue to monitor this patient closely. cc: Art Marquez MD
--- NOTE | 2018-10-12 15:01 | EEG REPORT ---
DATE: 10/12/2018 EEG #: [id number]. DATE OF STUDY: 10/12/2018. COMMENT: This is a digitally recorded EEG on a 48-year-old patient with reported episodic left- sided numbness, question of sensory seizure. FINDINGS: During waking, medium and higher amplitude 10 hertz posterior rhythm is present symmetrically and reacts normally to eye opening. Background contains polymorphic and rhythmic theta frequencies symmetrically across the hemispheres. Hyperventilation with good effort produced minimal symmetric slowing. Photic stimulation did not significantly alter the record. Drowsing occurred with appearance of more generalized slowing. Stage II sleep was not recorded. No definite epileptiform discharge was identified. INTERPRETATION: Normal EEG. CORRELATION: The absence of epileptiform discharges on a single EEG does not exclude a clinical diagnosis of seizures, but there is nothing on this record to suggest right hemisphere seizure focus. cc: Niko Shah III, MD
[2018-10-12] MEDS: LIPITOR PO SCH ×2 (21:07→21:09)
[2018-10-13] MEDS: XANAX PO SCH ×2 (06:24→06:27)
[2018-10-13 07:54] VITALS: BP 86/54
[2018-10-13] MEDS: SPIRIVA INH SCH (08:40)
[2018-10-13] MEDS: ASPIRIN PO SCH (10:06)
--- NOTE | 2018-10-13 11:45 | DISCHARGE SUMMARY ---
ADMISSION DATE: 10/07/2018 DISCHARGE DATE: 10/13/2018 ADMISSION DIAGNOSES: 1. Cerebrovascular accident. Rule out with stroke-like symptoms. 2. Scoliosis. 3. Lupus. 4. Crohn disease. 5. Recent left ear infection on amoxicillin. 6. Chronic obstructive pulmonary disease, emphysema. No exacerbation. 7. Tremors. DISCHARGE DIAGNOSES: 1. Left-sided weakness and numbness. All imaging revealed it was normal, so cause of left-sided weakness was unknown. Did have a magnetic resonance imaging of the spine, which was essentially unremarkable as well. 2. Chronic obstructive pulmonary disease. No exacerbation. CONSULTS: Dr. Shah, physical therapy. SURGERIES/PROCEDURES: None. HOSPITAL COURSE: Ms. Kiki Gaxiola is a 48-year-old female, who came in with complaints of left- sided numbness and tingling at [place]. Has a medical history of scoliosis and walks with a cane. 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 Apparently reported having at least 3 months worth of some nerve pain that would wax and wane. It felt like it was more specific to the left side, developing numbness and tingling and pain. It essentially went all the way down to the left leg. It was so severe that she felt like she could not walk and had to use a wheelchair. Apparently she woke up the morning of presenting to the emergency department with complete loss of sensation in the fingertips and the bottom of her feet. I stuck her foot with a pin and there was no sensation. By the time she presented to the emergency department, she was starting to have some sensation again and she was able to start lifting up her arm, but it was very shaky and weak. The civil engineering project designer was weak as well. Labs were unremarkable. Imaging was unremarkable. Went for MRI to rule out stroke; that was also negative. So, she was transferred to [facility] for Neurology consult. Physical therapy was also added while she was here. MRI of the L-spine was negative, and Dr. Shah saw her on the . He could not find any obvious neurologic deficit; with a negative imaging, that was reassuring. He ordered the EEG to help rule out seizure, but he felt like it is likely not seizure related. Even felt like he could even label it a migraine since she is young. EEG was normal, so she is going to be discharged home, and she will need to follow up with Dr. Shah as outpatient. DISCHARGE VITAL SIGNS: Temperature 97.4 degrees, heart rate 53, respiratory rate 18, blood pressure 86/54, O2 saturation 99% on room air. DISCHARGE LAB DATA: There are no recent labs. PERTINENT IMAGIN. On 10/07/2018 chest x-ray: COPD changes with hyperexpanded lungs, but nothing acute. 2. Head CT: No acute findings. 3. Carotid Doppler: Stenosis less than 50% bilaterally. 4. Echocardiogram: Pulmonary systolic pressure of 35 mmHg. Ejection fraction 65 to 70 percent. 5. On 10/08/2018 brain MRI: Sphenoid sinus disease, otherwise negative, and brain MRA. Normal MRI, normal MRA. 6. On 10/11/2018 lumbar spine MRI: All negative. L4-L5 had minimal disk osteophyte complex. Mild posterior hypertrophy. The L5-S1 had minimal diffuse disk osteophyte complex. No herniation. No stenosis. 7. EKG performed on the 07 of October: Normal sinus rhythm, rate 76, QTc is 445. DISCHARGE DIET: Regular. DISCHARGE ACTIVITY: As tolerated. DISCHARGE MEDICATIONS: 1. Albuterol 90 mcg inhaled 3 to 4 times per day p.r.n. 2. Spiriva 4 g p.o. daily. 3. Xanax 1 mg p.o. t.i.d. 4. Aspirin 325 mg p.o. daily. PHYSICIAN FOLLOW UP: 1. Dr. Walter Briceno on 10/18/2018 at 2 p.m. 2[address] Also with Dr. Shah; will need to call office for scheduling that appointment. DISCHARGE INSTRUCTIONS: If her condition changes, contact physician and/or return to the emergency department. Changes may include, but are not limited to shortness of breath, increased fatigue, excessive bleeding, weight loss or gain, unmanageable pain, signs or symptoms of infection. DISCHARGE DISPOSITION: Home. Dictated by JENA Del Rosario for Art Marquez MD Addendum: Patient seen and examined by myself. Agree with JENA note. It reflects my assessment and plan. Patient is being discharged in stable condition . Will be seen by Dr. Shah in 2 to 3 weeks. cc: JENA Del Rosario MD MTDD
--- NOTE | 2018-10-13 12:23 | PROGRESS NOTE ---
DATE: 10/13/2018 Ms. Gaxiola reports significant improvement overnight. I did not examine her today. We reviewed her workup. Everything has been unremarkable including all imaging and EEG yesterday showing no evidence of right hemisphere sensory seizure or other problem. I encouraged her to be careful with activities, to stay well hydrated and well rested, to be careful with caffeine, to take her medications as prescribed. We briefly discussed the possibility that migraine or other episodic neurologic condition might be related to changes in day to day activities and intake, and keeping a journal regarding sleep, caffeine, fever, medications might be helpful. Thanks for asking Neurology to see Ms. Gaxiola. cc: Niko Shah III, MD MTDD
== END 2018-10-13 12:35 | disposition home or self-care (01) | DRG 948 ==
LOC: P.MEDSURG 14:45 → P.ED 14:45 → OBSVTOIN 14:46 → SUATTDRO 14:46 → 3N 10-11 14:44
PROVIDERS: ATTEND Internal Medicine